=== PATIENT | female | born 1955 | race Caucasian/White ===

== ENCOUNTER → 2017-06-07 | Outpatient (CLI) | payer BC, OTHER ==
--- NOTE | 2017-06-10 08:02 | RAD ---
EXAM DESCRIPTION: Pelvis CLINICAL HISTORY: PAIN IN RT HIP COMPARISON: None FINDINGS: Single frontal view the pelvis. The pelvic ring is intact. No acute pelvic fractures present. SI joints and sacral struts are intact. Bilateral hip joints are normal. Benign phlebolith/calcifications noted within the pelvis. IMPRESSION: Normal. Electronically signed by: Bernardino Haq MD 06/10/2017 8:01 AM PRIMARY CARE PHYSICIAN
--- NOTE | 2017-06-10 08:14 | RAD ---
EXAM DESCRIPTION: Hip,Right 2 Views CLINICAL HISTORY: RT HIP PAIN COMPARISON: None FINDINGS: 2 views of the right hip. No acute fracture, dislocation or aggressive bone lesion is present. Bone mineralization appears normal. No erosions are present. No advanced osteoarthritis is present. No gross soft tissue findings. IMPRESSION: Negative Electronically signed by: Bernardino Haq MD 06/10/2017 8:13 AM [employer]
== END | disposition home or self-care (01) ==
LOC: RAD 08:18
PROVIDERS: ATTEND Orthopaedic Surgery
DX: M25.551 Pain in right hip (principal)

== ENCOUNTER → 2018-09-02 | Outpatient (CLI) | payer BC ==
--- NOTE | 2018-09-03 14:55 | RAD ---
EXAM DESCRIPTION: Radiographs of the right Shoulder:XR/CR/DR CLINICAL HISTORY: INJURY OF RIGHT SHOULDER REGION COMPARISON: None TECHNIQUE: Three views. IR/ER rotation. FINDINGS: No fracture right shoulder. Minimally decreased bone density. AC joint unremarkable. Glenohumeral joint hypertrophic changes on the greater tuberosity. No abnormal radiodense objects in the soft tissues or joint spaces. No fracture or dislocation. IMPRESSION: Decreased bone density in the right shoulder with no acute bony abnormality. Consider osteoporosis screening. Hypertrophic changes at the insertion of the rotator cuff tendons on the greater tuberosity. Electronically signed by: Clif Mckeon MD 09/03/2018 2:52 PM CDT
== END ==
LOC: YCFC.O 16:06
PROVIDERS: ATTEND Family Medicine
DX: S49.91XA Unspecified injury of right shoulder and upper arm, initial encounter (principal)

== ENCOUNTER → 2018-09-09 | Outpatient (CLI) | payer BC ==
--- NOTE | 2018-09-10 08:25 | MRI ---
Study: MRI of the Right Shoulder. Indication: PAIN IN RIGHT SHOULDER Technique: Multiplanar, multi sequence MRI of the right shoulder was obtained without intravenous contrast. Comparison: Radiographs September 02, 2018. Findings: Moderate AC joint osteoarthritis. Type II acromion with mild lateral downsloping. Full-thickness, fullwidth supraspinatus and infraspinatus tendon tearing with retraction of torn tendon fibers to the level of glenohumeral joint line. There is inflammation surrounding the tear site with associated intramuscular edema which can indicate acute component of tearing. Subscapularis tendinosis with reactive marrow edema in the lesser tuberosity. Cystic change noted at the anterior superior and posterior greater tuberosity. Mild atrophy and grade 1 fatty infiltration rotator cuff musculature. Long head biceps tendon intact. Circumferential labral tearing and truncation. Mild glenohumeral joint osteoarthritis with moderate joint effusion. No acute fracture. Impression: Full-thickness, fullwidth retracted supraspinatus and infraspinatus tendon tearing, likely acute. Subscapularis tendinosis. Circumferential labral tearing and truncation. Mild glenohumeral joint osteoarthritis with moderate-sized joint effusion. Moderate AC joint osteoarthritis. Mild atrophy and grade 1 fatty infiltration rotator cuff musculature. Electronically signed by: Chris Nuñez MD 09/10/2018 8:22 AM CDT
== END ==
LOC: RAD 10:38
PROVIDERS: ATTEND Family Medicine
DX: S46.811A Strain of other muscles, fascia and tendons at shoulder and upper arm level, right arm, initial encounter (principal); M75.91 Shoulder lesion, unspecified, right shoulder; M19.011 Primary osteoarthritis, right shoulder; M62.511 Muscle wasting and atrophy, not elsewhere classified, right shoulder